=== PATIENT | male | born 1955 | race Caucasian/White ===

== ENCOUNTER 2021-12-18 00:41 | Inpatient (IN) | payer MEDICARE, OTHER ==
[~2021-12-18] VITALS: Ht 175.3 cm; Wt 81.6 kg
[2021-12-18] MEDS ORDERED: PANTOPRAZOLE SODIUM 40 MG/VIAL IV STA (01:08)
[2021-12-18] MEDS ORDERED: ONDANSETRON HCL 4MG/2ML INJ IV STA (01:08)
[2021-12-18] MEDS ORDERED: SODIUM CHLORIDE 0.9% 1,000 ML IV ONE (01:15)
[2021-12-18 01:40] LABS: BASOPHILS % 0.8 % (0.0-2.0); EOSINOPHILS % 3.3 % (0.0-5.0); HEMATOCRIT. 25.3 % (42.0-52.0); HEMOGLOBIN. 8.5 g/dL (14.0-18.0); LYMPHOCYTES % 18.3 % (20.0-50.0); MEAN CORPUSCULAR HEMOGLOBIN 27.1 pg (28.0-32.0); MEAN CORPUSCULAR VOLUME 80.4 fL (80.0-94.0); MEAN PLATELET VOLUME 8.1 fl (7.4-10.4); NEUTROPHILS % 70.6 % (40.0-76.0); PLATELET 150 x1000/uL (130-400); RED BLOOD CELL COUNT 3.15 mill/uL (4.7-6.1); RED CELL DISTRIBUTION WIDTH 16.5 % (11.6-14.6)
[2021-12-18 01:45] LABS: CHLORIDE 113 mEq/L (98-107)
[2021-12-18] MEDS ORDERED: PANTOPRAZOLE SODIUM 40 MG/VIAL IV SCH (10:50)
[2021-12-18 12:13] LABS: BASOPHILS % 0.5 % (0.0-2.0); EOSINOPHILS % 1.4 % (0.0-5.0); HEMATOCRIT. 23.8 % (42.0-52.0); HEMOGLOBIN. 7.5 g/dL (14.0-18.0); LYMPHOCYTES % 16.8 % (20.0-50.0); MEAN CORPUSCULAR HEMOGLOBIN 25.8 pg (28.0-32.0); MEAN CORPUSCULAR VOLUME 81.2 fL (80.0-94.0); MEAN PLATELET VOLUME 8.5 fl (7.4-10.4); MONOCYTES % 5.2 % (2.0-8.0); NEUTROPHILS % 76.1 % (40.0-76.0); PLATELET 133 x1000/uL (130-400); RED BLOOD CELL COUNT 2.93 mill/uL (4.7-6.1); RED CELL DISTRIBUTION WIDTH 16.7 % (11.6-14.6)
[2021-12-18 12:45] LABS: CHLORIDE 117 mEq/L (98-107)
[2021-12-18] MEDS ORDERED: ONDANSETRON HCL 4MG/2ML INJ IV PRN (12:45)
[2021-12-18] MEDS ORDERED: ACETAMINOPHEN 325MG TABLET PO PRN (12:45)
[2021-12-18 13:27] LABS: INR 1.1; PROTHROMBIN TIME 12.1 sec (9.6-11.0)
[2021-12-18] MEDS: DEXT 5%/0.45% NACL 1000ML 1,000 ML IV SCH (13:43)
[2021-12-18] MEDS ORDERED: DEXTROSE 50% WATER 50ML SYRINGE IV PRN (16:00)
[2021-12-18] MEDS ORDERED: MIDAZOLAM HCL 2 MG/2 ML VIAL ONE (16:11)
[2021-12-18] MEDS ORDERED: FENTANYL CITRATE/PF 50MCG/ML 2ML VIAL ONE (16:12)
[2021-12-18] MEDS ORDERED: ONDANSETRON HCL 4MG/2ML INJ ONE (16:12)
[2021-12-18] MEDS ORDERED: LIDOCAINE HCL 1% 10 MG/ML 10ML VIAL ONE (16:12)
[2021-12-18] MEDS ORDERED: PROPOFOL 200MG/20ML VIAL IV ONE (16:12)
[2021-12-18] MEDS ORDERED: DEXAMETHASONE 4MG/ML 1ML VIAL ONE (16:12)
[2021-12-18] MEDS: BLOOD SUGAR DIAGNOSTIC STRIP TEST SCH ×2 (17:46→21:00)
[2021-12-18] MEDS: INSULIN LISPRO (MEDIUM DOSE) 100 UNITS/ML SUBCUT SCH ×2 (17:48→22:30)
[2021-12-18 18:03] LABS: BASOPHILS % 0.4 % (0.0-2.0); EOSINOPHILS % 1.3 % (0.0-5.0); HEMATOCRIT. 24.5 % (42.0-52.0); HEMOGLOBIN. 7.9 g/dL (14.0-18.0); LYMPHOCYTES % 11.8 % (20.0-50.0); MEAN CORPUSCULAR HEMOGLOBIN 25.8 pg (28.0-32.0); MEAN PLATELET VOLUME 8.1 fl (7.4-10.4); MONOCYTES % 2.7 % (2.0-8.0); NEUTROPHILS % 83.8 % (40.0-76.0); PLATELET 137 x1000/uL (130-400); RED BLOOD CELL COUNT 3.06 mill/uL (4.7-6.1); RED CELL DISTRIBUTION WIDTH 16.4 % (11.6-14.6)
[2021-12-18] MEDS ORDERED: OCTREOTIDE 1,000 MCG in SODIUM CHLORIDE 0.9% 98 ML IV SCH ×4 (18:30)
[2021-12-18] MEDS: PANTOPRAZOLE SODIUM 40 MG/VIAL IV SCH (22:36)
[2021-12-18 23:43] VITALS: BP 136/86
[2021-12-18 23:46] VITALS: BP 136/86
[2021-12-19] VITALS (9 sets, daily range): BP systolic 126–167; BP diastolic 63–88
[2021-12-19 00:57] LABS: BASOPHILS % 0.2 % (0.0-2.0); EOSINOPHILS % 0.1 % (0.0-5.0); HEMATOCRIT. 25.5 % (42.0-52.0); HEMOGLOBIN. 8.5 g/dL (14.0-18.0); LYMPHOCYTES % 9.7 % (20.0-50.0); MEAN CORPUSCULAR HEMOGLOBIN 26.8 pg (28.0-32.0); MEAN CORPUSCULAR VOLUME 80.2 fL (80.0-94.0); MEAN PLATELET VOLUME 8.1 fl (7.4-10.4); MONOCYTES % 1.2 % (2.0-8.0); NEUTROPHILS % 88.8 % (40.0-76.0); PLATELET 165 x1000/uL (130-400); RED BLOOD CELL COUNT 3.18 mill/uL (4.7-6.1); RED CELL DISTRIBUTION WIDTH 16.9 % (11.6-14.6)
[2021-12-19 05:32] LABS: CHLORIDE 111 mEq/L (98-107)
[2021-12-19 05:43] LABS: TOTAL IRON BINDING CAPACITY 398 ug/dL (250-450)
[2021-12-19 05:49] LABS: FERRITIN 12 ng/mL (22-322)
[2021-12-19 06:00] LABS: BASOPHILS % 0.3 % (0.0-2.0); HEMATOCRIT. 23.2 % (42.0-52.0); HEMOGLOBIN. 7.8 g/dL (14.0-18.0); HEPATITIS B SURFACE ANTIGEN NEGATIVE; LYMPHOCYTES % 13.7 % (20.0-50.0); MEAN CORPUSCULAR HEMOGLOBIN 27.2 pg (28.0-32.0); MEAN CORPUSCULAR VOLUME 80.3 fL (80.0-94.0); MEAN PLATELET VOLUME 8.5 fl (7.4-10.4); MONOCYTES % 1.9 % (2.0-8.0); NEUTROPHILS % 84.1 % (40.0-76.0); PLATELET 141 x1000/uL (130-400); RED BLOOD CELL COUNT 2.88 mill/uL (4.7-6.1)
[2021-12-19 06:04] LABS: VITAMIN B12 SERUM 327 pg/mL (211-911)
[2021-12-19] MEDS: BLOOD SUGAR DIAGNOSTIC STRIP TEST SCH ×4 (07:30→21:07)
[2021-12-19] MEDS: PANTOPRAZOLE SODIUM 40 MG/VIAL IV SCH ×2 (08:45→21:26)
[2021-12-19] MEDS: INSULIN LISPRO (MEDIUM DOSE) 100 UNITS/ML SUBCUT SCH ×4 (08:46→21:27)
[2021-12-19] MEDS ORDERED: ATEN50TA MT (11:35)
[2021-12-19] MEDS ORDERED: CLOP75TA33 MT (11:39)
[2021-12-19] MEDS ORDERED: ASPI-1497 MT (11:39)
[2021-12-19] MEDS ORDERED: TAMS-11 PO (11:39)
[2021-12-19] MEDS ORDERED: METF-874 PO (11:39)
[2021-12-19] MEDS ORDERED: ATOR40TA70 MT (11:39)
[2021-12-19] MEDS ORDERED: AMLO5TAB88 MT (11:39)
[2021-12-19 11:40] LABS: BASOPHILS % 0.3 % (0.0-2.0); HEMATOCRIT. 25.3 % (42.0-52.0); HEMOGLOBIN. 8.2 g/dL (14.0-18.0); LYMPHOCYTES % 14.4 % (20.0-50.0); MEAN CORPUSCULAR VOLUME 80.6 fL (80.0-94.0); MEAN PLATELET VOLUME 8.2 fl (7.4-10.4); MONOCYTES % 3.4 % (2.0-8.0); NEUTROPHILS % 81.9 % (40.0-76.0); PLATELET 197 x1000/uL (130-400); RED BLOOD CELL COUNT 3.14 mill/uL (4.7-6.1); RED CELL DISTRIBUTION WIDTH 16.7 % (11.6-14.6)
[2021-12-19] MEDS: DEXT 5%/0.45% NACL 1000ML 1,000 ML IV SCH ×2 (13:28→18:09)
[2021-12-19] MEDS ORDERED: OCTREOTIDE 1,000 MCG in SODIUM CHLORIDE 0.9% 98 ML IV SCH (14:00)
[2021-12-19] MEDS: FERROUS SULFATE 325MG TABLET PO SCH (18:08)
[2021-12-19] MEDS ORDERED: IOHEXOL-300 100 ML BOTTLE ONE (20:45)
[2021-12-19] MEDS: PROPRANOLOL HCL 10MG TABLET PO SCH (21:26)
[2021-12-20] VITALS (12 sets, daily range): BP systolic 123–158; BP diastolic 59–88
[2021-12-20] MEDS: DEXT 5%/0.45% NACL 1000ML 1,000 ML IV SCH (04:23)
[2021-12-20 06:45] LABS: BASOPHILS % 0.1 % (0.0-2.0); HEMATOCRIT. 21.1 % (42.0-52.0); HEMOGLOBIN. 7.3 g/dL (14.0-18.0); LYMPHOCYTES % 13.2 % (20.0-50.0); MEAN CORPUSCULAR HEMOGLOBIN 27.2 pg (28.0-32.0); MEAN CORPUSCULAR VOLUME 79.2 fL (80.0-94.0); MEAN PLATELET VOLUME 8.3 fl (7.4-10.4); MONOCYTES % 4.2 % (2.0-8.0); NEUTROPHILS % 82.5 % (40.0-76.0); PLATELET 122 x1000/uL (130-400); RED BLOOD CELL COUNT 2.66 mill/uL (4.7-6.1); RED CELL DISTRIBUTION WIDTH 16.5 % (11.6-14.6)
[2021-12-20 06:50] LABS: CHLORIDE 111 mEq/L (98-107)
[2021-12-20] MEDS: BLOOD SUGAR DIAGNOSTIC STRIP TEST SCH ×3 (07:30→17:30)
[2021-12-20] MEDS ORDERED: ASCORBIC ACID 500 MG TABLET PO SCH (09:00)
[2021-12-20] MEDS: PANTOPRAZOLE SODIUM 40 MG/VIAL IV SCH (09:15)
[2021-12-20] MEDS: PROPRANOLOL HCL 10MG TABLET PO SCH (09:15)
[2021-12-20] MEDS: FERROUS SULFATE 325MG TABLET PO SCH ×2 (09:15→13:21)
[2021-12-20] MEDS: INSULIN LISPRO (MEDIUM DOSE) 100 UNITS/ML SUBCUT SCH ×2 (09:16→13:23)
[2021-12-20] MEDS ORDERED: LACTULOSE 20G/30ML UDC PO NR (10:45)
[2021-12-20] MEDS ORDERED: FERR-71 MT (16:49)
[2021-12-20] MEDS ORDERED: PROT40 MT (16:49)
[2021-12-20 16:59] LABS: HEMATOCRIT 26.1 % (42.0-52.0); HEMOGLOBIN 8.6 g/dL (14.0-18.0)
== END 2021-12-20 18:15 | disposition home or self-care (01) | DRG 369 ==
LOC: ER 00:41 → 5EST 05:26 → ENRESERV 21:08
PROVIDERS: ADMIT Internal Medicine; ATTEND Internal Medicine
PROC: 06L38CZ Occlusion of Esophageal Vein with Extraluminal Device, Via Natural or Artificial Opening Endoscopic (ICD-10-PCS; principal; 2021-12-18)
PROC: 30233N1 Transfusion of Nonautologous Red Blood Cells into Peripheral Vein, Percutaneous Approach (ICD-10-PCS; 2021-12-20)
DX: I85.01 Esophageal varices with bleeding (principal); D62 Acute posthemorrhagic anemia; K76.6 Portal hypertension; E44.1 Mild protein-calorie malnutrition; E11.9 Type 2 diabetes mellitus without complications; E61.1 Iron deficiency; E78.5 Hyperlipidemia, unspecified; I10 Essential (primary) hypertension; I25.10 Atherosclerotic heart disease of native coronary artery without angina pectoris; K74.60 Unspecified cirrhosis of liver; Z20.822 Contact with and (suspected) exposure to COVID-19; R79.89 Other specified abnormal findings of blood chemistry; K31.89 Other diseases of stomach and duodenum; Z95.5 Presence of coronary angioplasty implant and graft; Z79.84 Long term (current) use of oral hypoglycemic drugs; Z79.82 Long term (current) use of aspirin; Z79.02 Long term (current) use of antithrombotics/antiplatelets
CPT/HCPCS: 36415; 71045; 71260; 74177; 76700; 80048; 80053; 80076; 82105; 82270; 82378; 82607; 82728; 82746; 82962; 83540; 83550; 83605; 85014; 85018; 85025; 85044; 86705; 86709; 86803; 86850; 86900; 86920; 87340; 87426; 93306; 93970; 97162; 99291; C9113; J1100; J1815; J2250; J2354; J2405; J2704; J3010; J3490; J7030; J7050; P9016; Q9967